=== PATIENT | female | born 2000 | race Hispanic/Latino ===

== ENCOUNTER 2024-12-09 04:42 | Emergency (ER) | payer SELFPAY ==
[2024-12-09 05:28] LABS: Sqamous Epithelial <5 /HPF (None Seen); Urine Culture Reflex Order REFLEXED; Urine Microscopic Reflex YN ORDER UMIC
[2024-12-09] MEDS ORDERED: predniSONE 20 MG TAB ONE (06:19)
--- NOTE | 2024-12-09 06:19 | EDPHYS ---
Physician Documentation [facility] Name: Misa Sow Age: 24 yrs Sex: Female : 2000 Arrival Date: 12/09/2024 Time: 04:42 Bed 5 Private MD: ED Physician Adama Cortez HPI: 12/09 05:00 This 24 yrs old Female presents to ER via Ambulatory with complaints of Facial cp Droop, Numbness Of Face. 05:00 The patient presents to the emergency department with left side facial droop and cp paresthesia. 05:00 Onset: The symptoms/episode began/occurred yesterday. Associated signs and symptoms: cp Pertinent negatives: fever, headache, weakness, vision changes. Patient's baseline: Neuro: alert and fully oriented, Motor: no deficits, Ambulation: walks without assistance, Speech: normal. Current symptoms: unchanged. Historical: - Allergies: 04:58 No Known Allergies; cc6 - Home Meds: 04:58 None [Active]; cc6 - PMHx: 04:58 None; cc6 - PSHx: 04:58 None; cc6 - Immunization history:: Adult Immunizations up to date. - Infectious Disease History:: Denies. - Social history:: Smoking status: Patient denies any tobacco usage or history of. ROS: 05:04 Constitutional: Negative for body aches, chills, fever, poor PO intake, cp 05:04 Eyes: Negative for visual disturbance, 05:04 Cardiovascular: Negative for chest pain, palpitations, 05:04 Respiratory: Negative for cough, shortness of breath, wheezing, 05:04 Abdomen/GI: Negative for abdominal pain, vomiting, diarrhea, constipation, 05:04 Skin: Negative for rash, 05:04 Neuro: Positive for numbness, of the left side of face, facial droop, Negative for altered mental status, headache, weakness, Vital Signs: 04:56 BP 127 / 83; Pulse 88; Resp 16; Temp 98.7; Pulse Ox 99% on R/A; Weight 83.91 kg; Height cc6 5 ft. 2 in. ; Pain 0/10; 06:38 BP 128 / 88; Pulse 70; Resp 17; Pulse Ox 98% on R/A; cc6 04:56 Body Mass Index 33.84 (83.91 kg, 157.48 cm) cc6 04:56 Pain Scale: Adult cc6 MDM: 04:47 Medical Screening Exam initiated cp 12/09 05:01 Order name: UA Rfx Mauricio Cult if indicated; Complete Time: 06:10 cp 12/09 05:01 Order name: Test, Urine; Complete Time: 06:10 cp 12/09 05:05 Order name: Glucose, Ancillary Testing; Complete Time: 06:10 EDMS 12/09 05:42 Order name: Urine Culture EDMS Administered Medications: 06:24 Drug: predniSONE PO 60 mg PO once Route: PO; cc6 06:34 Follow up: Response: No adverse reaction vc1 06:24 Drug: Acyclovir PO 800 mg PO once Route: PO; cc6 06:34 Follow up: Response: No adverse reaction vc1 Disposition Summary: 12/09/24 06:18 Discharge Ordered Notes: Location: Home cp Problem: new cp Symptoms: have improved cp Condition: Stable cp Diagnosis - Hart's palsy cp Followup: cp - With: Nabil Hernandez MD - When: 2 - 3 days - Reason: Recheck today's complaints Followup: cp - With: Robert Avendaño MD - When: 2 - 3 days - Reason: Recheck today's complaints Discharge Instructions: - Discharge Summary Sheet cp - Hart's Palsy, Adult cp Forms: - Medication Reconciliation Form cp - Antibiotic Education cp - Prescription Opioid Use cp - Patient Portal Instructions cp - Leadership Thank You Letter cp - School release form zm - Work release form zm Prescriptions: - valacyclovir 1 gram Oral tablet - take 1 tablet ORAL route every 8 hours for 7 days; 21 tablet; Refills: 0, cp Product Selection Permitted - Artificial Tears (PF) Ophthalmic Dropperette - instill 1 drop OPHTHALMIC route every 2 to 4 hours As needed as needed for dry cp eye(s); 1 unit; Refills: 0, Product Selection Permitted - Prednisone 20 mg Oral Tablet - take 3 tablets ORAL route once daily for 5 days; 15 tablet; Refills: 0, Product cp Selection Permitted Addendum: 12/13/2024 11:31 Co-signature as Attending Physician, Adama Cortez MD I agree with the assessment and c mcnair plan of care. Signatures: Dispatcher [employer] Adama Jin MD MD cha Page, Corey, PA-C PA-C Anne-Marie Whitaker, RN RN cc6 Brigid, Melody RN vc1
--- NOTE | 2024-12-09 06:19 | ER ---
Nurse's Notes [facility] Name: Misa Sow Age: 24 yrs Sex: Female : 2000 Arrival Date: 12/09/2024 Time: 04:42 Bed 5 Private MD: Diagnosis: Hart's palsy Presentation: 12/09 04:56 Chief complaint: Patient states: noticed eye has been twitching for 1 week. Woke up for cc6 work at 0200 and realized that she could close left eye. Coronavirus screen: Client denies travel out of the [place] in the last 14 days. Ebola Screen: No symptoms or risks identified at this time. Initial Sepsis Screen: Does the patient meet any 2 criteria? No. Patient's initial sepsis screen is negative. Does the patient have a suspected source of infection? No. Patient's initial sepsis screen is negative. Risk Assessment: Do you want to hurt yourself or someone else? Patient reports no desire to harm self or others. Onset of symptoms was December 09, 2024. 04:56 Method Of Arrival: Ambulatory cc6 04:56 Acuity: RONI 3 cc6 Triage Assessment: 04:58 General: Appears in no apparent distress. comfortable, Behavior is calm, cooperative. cc6 Pain: Denies pain. EENT: Lid(s) drooping on left upper eyelid, left outer canthus, outer aspect of conjuctiva of left eye, iris of left eye, inner aspect of conjunctiva of left eye and left inner canthus. Neuro: Level of Consciousness is awake, alert, obeys commands, Oriented to person, place, time, situation, Appropriate for age. Cardiovascular: Patient's skin is warm and dry. Respiratory: Airway is patent Respiratory effort is even, unlabored, Respiratory pattern is regular, symmetrical. GI: No signs and/or symptoms were reported involving the gastrointestinal system. : No signs and/or symptoms were reported regarding the genitourinary system. Derm: No signs and/or symptoms reported regarding the dermatologic system. Musculoskeletal: No signs and/or symptoms reported regarding the musculoskeletal system. Historical: - Allergies: 04:58 No Known Allergies; cc6 - Home Meds: 04:58 None [Active]; cc6 - PMHx: 04:58 None; cc6 - PSHx: 04:58 None; cc6 - Immunization history:: Adult Immunizations up to date. - Infectious Disease History:: Denies. - Social history:: Smoking status: Patient denies any tobacco usage or history of. Screenin:00 [facility] ED Fall Risk Assessment (Adult) History of falling in the last 3 months, cc6 including since admission No falls in past 3 months (0 pts) Confusion or Disorientation No (0 pts) Intoxicated or Sedated No (0 pts) Impaired Gait No (0 pts) Mobility Assist Device Used No (0 pt) Altered Elimination No (0 pt) Score/Fall Risk Level 0 - 2 = Low Risk Oriented to surroundings, Maintained a safe environment, Educated pt \T\ family on fall prevention, incl call for assistance when getting out of bed. Abuse screen: Denies threats or abuse. Denies injuries from another. Nutritional screening: No deficits noted. Tuberculosis screening: No symptoms or risk factors identified. Assessment: 05:02 Reassessment: SEE TRIAGE. cc6 Vital Signs: 04:56 BP 127 / 83; Pulse 88; Resp 16; Temp 98.7; Pulse Ox 99% on R/A; Weight 83.91 kg; Height cc6 5 ft. 2 in. ; Pain 0/10; 06:38 BP 128 / 88; Pulse 70; Resp 17; Pulse Ox 98% on R/A; cc6 04:56 Body Mass Index 33.84 (83.91 kg, 157.48 cm) cc6 04:56 Pain Scale: Adult cc6 ED Course: 04:44 Patient arrived in ED. mr 04:46 [facility] Maddox [facility]C [facility] cp 04:46 Adama Cortez MD is Attending Physician. cp 04:58 Triage completed. cc6 05:00 Patient has correct armband on for positive identification. Bed in low position. Call cc6 light in reach. Side rails up X 1. Provided Education on: use of call light. 05:00 Arm band placed on right wrist. bm8 05:00 No provider procedures requiring assistance completed. Inserted saline lock: 20 gauge cc6 in right antecubital area, using aseptic technique. Blood collected. Flushed with 10 mL NS. 05:02 Anne-Marie Martines RN is Primary Nurse. cc6 06:17 Nabil Hernandez MD is Referral Physician. cp 06:17 Robert Avendaño MD is Referral Physician. cp 06:35 IV discontinued, intact, bleeding controlled, No redness/swelling at site. Pressure vc1 dressing applied. Administered Medications: 06:24 Drug: predniSONE PO 60 mg PO once Route: PO; cc6 06:34 Follow up: Response: No adverse reaction vc1 06:24 Drug: Acyclovir PO 800 mg PO once Route: PO; cc6 06:34 Follow up: Response: No adverse reaction vc1 Medication: 06:04 VIS not applicable for this client. bm8 Outcome: 06:18 Discharge ordered by . cp 06:35 Discharged to home ambulatory, with family, vc1 06:35 Condition: stable 06:35 Discharge instructions given to patient, Instructed on discharge instructions, follow up and referral plans. medication usage, Demonstrated understanding of instructions, follow-up care, medications, Prescriptions given X 3, 06:39 Patient left the ED. cc6 Signatures: Shante Navarro, Reg Reg Varsha Adama, PA-C PA-C Melody Simmons RN RN vc1 Gallito Goodman RN RN bm8 Anne-Marie Martines, HELEN RN cc6
[2024-12-09] MEDS ORDERED: ACYCLOVIR 400 MG TABLET ONE (06:20)
[2024-12-09 06:46] VITALS: TEMP 98.7
[2024-12-09 06:47] VITALS: BP 128/88; O2SAT 98
== END 2024-12-09 06:39 | disposition home or self-care (01) ==
LOC: ER 04:42
DX: G51.0 Bell's palsy (principal)
CPT/HCPCS: 81001; 81025; 82947; 87086; 87088; 99284; J7512